=== PATIENT | male | born 1950 | race Caucasian/White ===

== ENCOUNTER → 2023-07-05 | Day surgery (SDC) | payer MEDICARE, BC ==
[2023-07-04 11:45] LABS: BASOPHILS # (AUTO) 0.1 (0.0-0.1); BASOPHILS % 0.8 % (0.0-1.0); EOSINOPHILS # (AUTO) 0.1 (0.0-0.4); EOSINOPHILS % 1.3 % (0.0-6.0); HEMATOCRIT 42.8 % (38.2-49.6); LYMPHOCYTES # (AUTO) 1.7 (1.0-3.2); LYMPHOCYTES % 26.3 % (18.0-39.1); MEAN CORPUSCULAR HEMOGLOBIN 31.3 pg (28-32); MEAN CORPUSCULAR VOLUME 89.2 fL (81-99); MONOCYTES # (AUTO) 0.5 (0.2-0.8); MONOCYTES % 7.9 % (4.4-11.3); NEUTROPHILS % 63.2 % (38.7-80.0); PLATELET COUNT 247 x10e3/uL (140-360); RED CELL DISTRIBUTION WIDTH 12.9 % (11.7-14.4); WHITE BLOOD COUNT 6.35 x10e3/uL (4.8-10.8)
[~2023-07-05] MED LIST: CEFAZOLIN SODIUM 2 GM ONE; CEFTRIAXONE 1 GM VIAL ONE; CLINDAMYCIN HC300 MG PO; FENTANYL CITRATE/PF 100MCG/2 ML INJ ONE; FLONASE ALLERG9.9 ML INH; HYDROCODONE/APAP 7.5MG-325MG 1 EA TAB ONE; LACTATED RINGER'S 1,000 ML ONE; LIDOCAINE HCL 2% LOCAL INJ 5 ML SDV VIAL INJ ONE; MAGNESIUM500 MG PO; MULTI-VITAMIN1 EACH PO; ONDANSETRON HCL INJ 2MG/ML 2ML 2 MG/ML VIAL ONE; PROPOFOL IV EMULSION 10 MG/ML 20 ML VIAL ONE; SEVOFLURANE INHAL SOLN 250 ML PEN BTL ONE; TUMERIC PO; VIT B; VIT B12 PO; VIT C PO
[2023-07-05] MEDS: FENTANYL CITRATE/PF 100MCG/2 ML INJ ONE ×4 (09:42→09:58)
[2023-07-05 10:35] VITALS: BP 158/90; PULSE 53; RESP 16; O2SAT 98
== END | disposition home or self-care (01) ==
LOC: OR 07:36
PROVIDERS: ATTEND Orthopaedic Surgery
DX: M70.21 Olecranon bursitis, right elbow (principal); I45.10 Unspecified right bundle-branch block; Z91.040 Latex allergy status; Z01.810 Encounter for preprocedural cardiovascular examination; Z01.812 Encounter for preprocedural laboratory examination; Z01.818 Encounter for other preprocedural examination
CPT/HCPCS: 24105; 36415; 71046; 85025; 87071; 87075; 87186; 87205; 93005; J0696; J2001; J2405; J2704; J3010; J7121